=== PATIENT | female | born 1995 | race Caucasian/White ===

== ENCOUNTER 2018-01-18 14:42 | Emergency (ER) | payer OTHER ==
[2018-01-18 15:04] VITALS: BP 110/56
--- NOTE | 2018-01-18 15:39 | UC ---
Eye Complaint HPI - HPI Summary HPI Summary: 22 y/o female presents to the urgent care c/o scratching her Rt eye w/ a paper towel s/p blowing her nose very hard at work about 2 hrs ago. Pt states her eye has a burning sensation, red and constantly tearing. Pain is 5/10. She has been rubbing her eye and now she has mild swelling. Pt denies photophobia, WASSERMAN, dizziness, chest pain, abdominal pain, N/v/D. Pt is UTD w/ Tetanus vaccine. - History of Current Complaint Chief Complaint: UCEye Stated Complaint: SCRATCH ON EYE Time Seen by Provider: 01/18/18 15:32 Hx Obtained From: Patient Hx Last Menstrual Period: 01/07/18 ?: No Onset/Duration: Sudden Onset, Lasting Hours - 5hrs, Still Present Timing: Constant Severity Initially: Moderate Severity Currently: Moderate Pain Intensity: 5 Pain Scale Used: 0-10 Numeric Location of Injury: Conjunctiva - left eye scartch w/ a paper towel, w/ clear drainage Character: Dull, Foreign Body Sensation Aggravating Factor(s): Blinking Alleviating Factor(s): Nothing Associated Signs And Symptoms: Positive: Drainage (Clear). Negative: Photophobia, Vision Impairment Bilateral, Fever, Swelling - Risk Factors Penetrating Injury Risk Factor: Negative Globe Rupture Risk Factors: Negative Acute Glaucoma Risk Factors: Negative Optic Artery Occlusion Risk Factors: Negative - Allergies/Home Medications Allergies/Adverse Reactions: Allergies Allergy/AdvReac Type Severity Reaction Status Date / Time No Known Allergies Allergy Verified 01/18/18 15:03 Home Medications: Home Medications Amino Acids/Protein Supplement [Protein 2,000 mg Tablet] 1 tab PO DAILY [History Confirmed 01/18/18] Cholecalciferol (Vitamin D3) [Vitamin D3] 1,000 unit PO DAILY 01/18/18 [History Confirmed 01/18/18] Citalopram Hydrobromide [Celexa] 40 mg PO DAILY 01/18/18 [History Confirmed 02/23] Guanfacine ER (NF) [Intuniv (NF)] 1 tab PO DAILY 01/18/18 [History Confirmed 02/23] Carson-3 Fatty Acids (Nf) [Fish Oil (NF)] 1 tab PO DAILY 01/18/18 [History Confirmed 01/18/18] PMH/Surg Hx/FS Hx/Imm Hx Previously Healthy: Yes Other Psychological History: ADHD - Surgical History Surgical History: None - Social History Alcohol Use: Occasionally Substance Use Type: None Smoking Status (MU): Never Smoked Tobacco - Immunization History Most Recent Tetanus Shot: 2014 Review of Systems All Other Systems Reviewed And Are Negative: Yes Constitutional: Positive: Negative Skin: Positive: Negative Eyes: Positive: Drainage - clear, Eye Redness - left eye paper towel scratch ENT: Positive: Negative Respiratory: Positive: Negative Cardiovascular: Positive: Negative Gastrointestinal: Positive: Negative Genitourinary: Positive: Negative Motor: Positive: Negative Neurovascular: Positive: Negative Musculoskeletal: Positive: Negative Neurological: Positive: Negative Psychological: Positive: Negative Is Patient Immunocompromised?: No Physical Exam - Summary Physical Exam Summary: Vital Signs Reviewed: Yes General: Well appearing, well nourished obese female in no apparent pain distress Eyes: Positive: Conjunctiva Inflamed - Visual acuity: WNL,Visual arizmendi: full to confrontation. PERRLA, EOMI intact w/out limitation or complaint of pain. eyelashes clear. mild tearing observed. No ciliary flush. No chemosis, No photophobia. Normal fundoscopic exam; no proptosis, exophthalmos, nystagmus. No FB observed w/ naked eye. ENT: Positive: Normal ENT inspection, Hearing grossly normal, Pharynx normal, Nasal congestion, Nasal drainage - clear, TMs normal - B/L external ear canal clear , TM's WNL. Negative: Tonsillar swelling, Tonsillar exudate Neck: Positive: Supple, Nontender, No Lymphadenopathy Respiratory: Positive: Chest nontender, Lungs clear, Normal breath sounds, No respiratory distress Cardiovascular: Positive: RRR, No Murmur, Pulses Normal, Brisk Capillary Refill Abdomen Description: Positive: Nontender, No Organomegaly, Soft. Negative: CVA Tenderness (R), CVA Tenderness (L) Bowel Sounds: Positive: Present Musculoskeletal: Positive: Strength Intact, ROM Intact, No Edema Neurological Exam: Normal Psychological Exam: Normal Skin Exam: Normal Triage Information Reviewed: Yes Vital Signs: Initial Vital Signs Temp 98.4 F 01/18/18 14:58 Pulse 75 01/18/18 14:58 Resp 18 01/18/18 14:58 BP 110/56 01/18/18 14:58 Pulse Ox 100 01/18/18 14:58 Eye Complaint Course/Dx - Course Course Of Treatment: 22 y/o female presents to the urgent care c/o scratching her Rt eye w/ a paper towel s/p blowing her nose very hard at work about 2 hrs ago. Pt states her eye has a burning sensation, red and constantly tearing. Pain is 5/10. She has been rubbing her eye and now she has mild swelling. Pt denies photophobia, WASSERMAN, dizziness, chest pain, abdominal pain, N/v/D. Pt is UTD w/ Tetanus vaccine.Hx obtained. 2 drops of Tetracaine optha drops placed on Pt s RTt eye, then irrigated with saline drops to flush any foreign particles, then fluorescein instillation and examination with a sli UV lamp. Positive corneal abrasion observed at 7-8 oclock. No foreign body identified. Pt's RT eye covered w/ an eye patch. Pt Rx Erythromycin ophthalmic ointment and advised to f/u at [facility] tomorrow for further maangment. Pt understood and agreed w/ plan of care. - Differential Dx/Diagnosis Differential Diagnosis/HQI/PQRI: Conjunctivitis, Corneal Abrasion, Foreign Body , Periorbital Cellulitis, Orbital Cellulitis Provider Diagnoses: 1-RT eye corneal abrasion s/p paper scratch Discharge - Sign-Out/Discharge Documenting (check all that apply): Patient Departure - D/c home All imaging exams completed and their final reports reviewed: No Studies - Discharge Plan Condition: Stable Disposition: HOME Prescriptions: Erythromycin OPTH OINT* [Erythromycin 0.5% OPTH OINT*] 1 applic RIGHT EYE TID # 1 ophth.oint Patient Education Materials: Corneal Abrasion (ED) Forms: *Work Release Referrals: [facility] [place] [facility] [Outside] - If Needed Marco A Sweet MD [Medical Doctor] - 1 Day Additional Instructions: 1-Please apply ophthalmic ointment in your RT eye as directed. Please keep eye patch x 1 day for comfort. 2- Please f/u w/ DR Sweet tomorrow for further management on you Corneal abrasion. - Billing Disposition and Condition Condition: STABLE Disposition: Home
[2018-01-18] MEDS ORDERED: Eye Irrigation Solution 30 ML BOTTLE LEFT EYE ONE (15:46)
[2018-01-18] MEDS ORDERED: Tetracaine 0.5% OPTH.SOL 4 ML* 1 DROP BTL LEFT EYE ONE (15:46)
[2018-01-18] MEDS ORDERED: Fluorescein Sodium TOPICAL* 1 MG TEST STRIP OPHTHALMIC ONE (15:47)
== END 2018-01-18 16:35 | disposition home or self-care (01) ==
LOC: UCEAST 14:42
DX: S05.01XA Injury of conjunctiva and corneal abrasion without foreign body, right eye, initial encounter (principal); W22.8XXA Striking against or struck by other objects, initial encounter; Y92.9 Unspecified place or not applicable
CPT/HCPCS: 99212; A9270-GY; G0463